=== PATIENT | male | born 1980 | race Caucasian/White ===

== ENCOUNTER 2018-06-27 07:41 | Emergency (ER) | payer BC ==
[~2018-06-27] VITALS: Ht 152.4 cm; Wt 68.9 kg
[2018-06-27] MEDS ORDERED: IV NORMAL SALINE 1000 ML BAG IV ONE (08:00)
[2018-06-27] MEDS ORDERED: KETOROLAC TROMETHAMINE 15 MG INJ IV ONE (08:00)
[2018-06-27] MEDS ORDERED: ONDANSETRON 4 MG/2 ML VIAL IV ONE (08:00)
[2018-06-27 08:19] LABS: BASOPHILS % (AUTO) 0.3 % (0.0-2.0); EOSINOPHILS # (AUTO) 0.3 K/uL (0.0-0.7); HEMATOCRIT 46.6 % (36.7-47.1); HEMOGLOBIN 15.6 g/dL (12.5-16.3); LYMPHOCYTES # (AUTO) 0.7 K/uL (20.0-40.0); LYMPHOCYTES % (AUTO) 5.5 % (20.5-51.5); MEAN CORPUSCULAR HEMOGLOBIN 30.3 uug (23.8-33.4); MEAN CORPUSCULAR HGB CONC 33 g/dL (32.5-36.3); MEAN CORPUSCULAR VOLUME 90.7 fL (73.0-96.2); MONOCYTES # (AUTO) 0.7 K/uL (2.0-10.0); MONOCYTES % (AUTO) 5.2 % (0.0-11.0); NEUTROPHILS # (AUTO) 11.4 K/uL (1.8-8.9); PLATELET COUNT (AUTO) 235 K/uL (152-348); RED BLOOD CELL COUNT(AUTO) 5.13 MIL/uL (4.06-5.63); WHITE BLOOD COUNT (AUTO) 13.1 K/uL (3.6-10.2)
[2018-06-27] MEDS ORDERED: KETOROLAC TROMETHAMINE 15 MG INJ ONE (08:20)
[2018-06-27] MEDS ORDERED: ONDANSETRON 4 MG/2 ML VIAL ONE (08:20)
--- NOTE | 2018-06-27 08:24 | NUR ---
pt is in room #1b. dr emmanuel evaluated the pt.
[2018-06-27 08:26] LABS: POTASSIUM 3.4 mmol/L (3.5-5.1)
[2018-06-27 08:31] LABS: BILIRUBIN,DIRECT 0.2 mg/dL (0.0-0.2); BILIRUBIN,TOTAL 0.7 mg/dL (0.2-1.0); TOTAL PROTEIN, SERUM 8.2 g/dL (6.4-8.2)
--- NOTE | 2018-06-27 09:08 | NUR ---
PT WAS D/C'd TO HOME. D/C INSTRUCTIONS GIVEN TO THE PT.
[2018-06-27 09:10] VITALS: BP 129/71
== END 2018-06-27 09:11 | disposition home or self-care (01) ==
LOC: ER 07:41
DX: M79.10 Myalgia, unspecified site (principal); R11.2 Nausea with vomiting, unspecified; R19.7 Diarrhea, unspecified
CPT/HCPCS: 36415; 80048; 80076; 83690; 85025; 86625; 87015; 87046; 87427; 87899; 96361; 96374; 96375; 99283; J1885; J2405; A4663; J7030